=== PATIENT | male | born 1990 | race Hispanic/Latino ===

== ENCOUNTER 2023-03-30 10:20 | Emergency (ER) | payer OTHER, SELFPAY ==
[2023-03-30 10:21] VITALS: BP 124/78; PULSE 83; RESP 16; TEMP 36.9; O2SAT 100
--- NOTE | 2023-03-30 10:49 | ED.RN ---
Employer at [employer] states not workers comp. Using drilling supervisor with physician. was pulling out calf during at [employer] yesterday. back pain.
--- NOTE | 2023-03-30 10:56 | ED.VIS.BACK ---
HPI History of Present Illness Chief Complaint: Back Narrative Narrative: 32-year-old thin speaking male presenting with back pain. Supervisor Type Bar And Segment pad was used. Patient states this started yesterday with a slight pinch. He states today it is worse. Patient states that he was birthing neck calf and bent over to pick it up after and Was born and noticed a pinch in his lower back on the right. After that she states is more aching. He has difficulty walking secondary to pain. No loss of bladder or bowel control. No saddle anesthesia. Patient denies any direct trauma. No history of back problems. [facility] Medical History Back pain Home Medications sulfacetamide sodium 10 % eye drops 1 drp ophthalmic (eye) Q4H #5 mL 11/11/21 [Rx Last Taken Unknown] cyclobenzaprine 10 mg tablet 10 mg PO TID PRN Muscle Spasm #20 TABLETS 03/30/23 [Rx Last Taken Unknown] naproxen 500 mg tablet (Naprosyn) 500 mg PO BID PRN pain #20 tabs 03/30/23 [Rx Last Taken Unknown] Allergy/AdvReac Type Severity Reaction Status Date / Time No Known Allergies Allergy Verified 03/30/23 10:20 Social History Smoking Status: Unknown if ever smoked ROS ROS ED Constitutional Constitutional ED: Denies chills, fever(s) or sweats Eyes Eyes: Denies blurry vision or change in vision ENT ENT ED: Denies ear pain or sore throat Cardiovascular Cardiovascular: Denies chest pain, palpitations or racing heartbeat Respiratory/Chest Respiratory/Chest: Denies cough, dyspnea or sputum Gastrointestinal Gastrointestinal: Denies abdominal pain, constipation, diarrhea, nausea or vomiting Genitourinary Genitourinary ED: Denies dysuria, hematuria or urinary frequency Musculoskeletal Musculoskeletal: Reports back pain; Denies arthralgias, myalgias or neck pain Integumentary Denies abscess, Abrasions or rash Neurologic Neurologic: Denies headache(s), paresthesias or weakness Psychiatric Psychiatric: Denies anxiety, depression, suicidal ideation or suicidal thoughts Endocrine Endocrinology: Denies polydipsia or polyuria EXAM Physical Exam Const Vital Signs: 03/30/23 10:21 Temperature 98.5 F Temperature Source Temporal Pulse Rate 83 Respiratory Rate 16 Blood Pressure 124/78 H Blood Pressure Mean 93 Pulse Ox 100 Oxygen Delivery Method Room Air Positive well nourished General Appearance ED: NAD; Negative for pallor HEENT Reports moist mucous membranes Eyes PERRL and EOMs intact bilaterally Resp normal respiratory effort Cardio regular rate and regular rhythm Back/Spine Back/Spine Narrative: Tenderness to palpation right lumbar paraspinal musculature. No midline spinal tenderness, deformity, step-off. Extremity normal to inspection Psych mental status grossly normal Skin General Skin Exam: Negative for jaundice or pallor MDM MDM MDM Narrative Medical decision making narrative: Patient presenting with symptoms of lumbar strain. This is on the right side. No cauda equina symptoms. No infectious etiology symptoms. Patient medicated with Norflex and Toradol. Supervisor Type Bar And Segment pad was used throughout the history, physical, discharge planning. Patient acknowledged understanding of all instructions. Patient's employer who speaks Wolof is also in the room and understands that the patient needs some rest for a few days. All instructions were. In Georgian. Impression: 1. Lumbar strain Discharge Plan Triage Chief Complaint: Back ED Provider: Golden Edgar Dx/Rx/DC Orders Instructions: ED Back Care Tips, ED Back Sprain/Strain Prescriptions: New naproxen [Naprosyn] 500 mg tablet 500 mg PO BID PRN (Reason: pain) Qty: 20 0RF cyclobenzaprine 10 mg tablet 10 mg PO TID PRN (Reason: Muscle Spasm) Qty: 20 0RF No Action sulfacetamide sodium 10 % drops 1 drp ophthalmic (eye) Q4H Qty: 5 0RF Stand Alone Forms: ED Work / School Excuse Print Language: Georgian Disposition Disposition: Home, Self Care
[2023-03-30] MEDS: Ketorolac 15 MG/ML Vial IM (11:03)
[2023-03-30] MEDS: Orphenadrine 60 MG/2 ML Ampul IM (11:03)
[2023-03-30 11:27] VITALS: BP 117/73; PULSE 69; RESP 16; TEMP 36.9; O2SAT 98
== END 2023-03-30 11:30 | disposition home or self-care (01) ==
PROVIDERS: Emergency Provider Student in an Organized Health Care Education/Training Program; Visit Provider Student in an Organized Health Care Education/Training Program
DX: S39.012A Strain of muscle, fascia and tendon of lower back, initial encounter (principal); X58.XXXA Exposure to other specified factors, initial encounter
CPT/HCPCS: 96372; 99282